=== PATIENT | male | born 1995 | race Caucasian/White ===

== ENCOUNTER 2022-05-08 20:44 | Emergency (ER) | payer BC ==
[~2022-05-08] VITALS: Ht 175.2 cm; Wt 67.1 kg
[2022-05-08 20:47] VITALS: BP 149/85
--- NOTE | 2022-05-08 21:00 | ED Lower Extremity ---
General Chief Complaint: Lower Extremity Stated Complaint: R ANKLE PAIN Nursing Triage Note: Patient states that he rolled his right ankle and buckled his right knee while skateboarding 4 hours ago. Source: patient History of Present Illness Date Seen by Provider: May 08, 2022 Time Seen by Provider: 20:49 Initial Comments 27-year-old male presenting with complaints of right ankle and knee pain since he fell skateboarding. He states he injured himself approximately 4 hours prior to arrival. He had gotten off a skateboard and rolled his ankle and then felt like his knee buckled. She denies hitting his head or losing consciousness. He has no numbness or weakness in his arms or legs. He states he has developed pain in his right leg to be able to stand. Onset: this afternoon Severity: severe Pain/Injury Location: right knee, right ankle Method of Injury: sports injury (skateboarding) Modifying Factors: Worse With Movement Allergies and Home Medications Allergies Coded Allergies: No Known Drug Allergies (Unverified , 05/08/22) Patient Home Medication List Home Medication List Reviewed: Yes Ibuprofen (Ibuprofen) 800 Mg Tablet, 800 MG PO Q8H PRN for PAIN Prescribed by: YANELIS CHEN on 05/08/222118 Review of Systems Constitutional: No chills, No fever EENTM: no symptoms reported Respiratory: no symptoms reported Cardiovascular: no symptoms reported Gastrointestinal: no symptoms reported Genitourinary: no symptoms reported Musculoskeletal: see HPI Skin: No change in color Psychiatric/Neurological: Denies Numbness, Denies Paresthesia Past Dukkjrp-Zniekp-Usjqmj Hx Patient Social History Tobacco Use?: No Substance use?: Yes Substance type: Marijuana Alcohol Use?: No Pt feels they are or have been: No Past Medical History Surgery/Hospitalization HX: Left knee torn ACL and meniscus injury Physical Exam Vital Signs Vital Signs - First Documented 05/08/22 20:47 Temp 36.8 Pulse 81 Resp 16 B/P (MAP) 149/85 (106) Pulse Ox 99 O2 Delivery Room Air Capillary Refill : Less Than 3 Seconds Height, Weight, BMI Height: '" Weight: lbs. oz. kg; 21.00 BMI Method: General Appearance: WD/WN, mild distress HEENT: PERRL/EOMI Neck: non-tender, full range of motion, supple Cardiovascular: normal peripheral pulses Knees: right knee normal range of motion, right knee pain (lateral and inferior aspect) Ankles: right ankle pain (lateral ankle pain without deformity, crepitus or step off. pain increased with plantar and dorsiflexion), right ankle soft tissue tenderness, right ankle swelling (mild) Neurologic/Tendon: normal sensation, normal motor functions, normal tendon functions Neurologic/Psychiatric: lap cutter II-XII nml as tested, no motor/sensory deficits, alert, oriented x 3 Skin: normal color, warm/dry Progress/Results/Core Measures Results/Orders My Orders Orders - YANELIS CHEN MD Ankle 3 View Right (05/08/22 20:48) Knee 3 View Right (05/08/22 20:50) Ibuprofen Tablet (Motrin Tablet) (05/08/22 21:12) Landon Bandage (05/08/22 21:13) Air Strup Ankle Brace (05/08/22 21:13) Crutches (05/08/22 21:13) Ice: Apply To Affected Area (05/08/22 21:13) Vital Signs/I&O 05/08/22 20:47 Temp 36.8 Pulse 81 Resp 16 B/P (MAP) 149/85 (106) Pulse Ox 99 O2 Delivery Room Air Blood Pressure Mean: 106 Progress Progress Note #1: Progress Note xrays of right knee and ankle to evaluate for acute bony abnormality Progress Note #2: Progress Note On my review of the three-view films of his right ankle and right knee he has no acute fracture or displacement. Will treat with Landon bandage for his ankle and an Aircast. Continue with ice and ibuprofen. Crutches for weightbearing as tolerated. If not improving over the next week check back with the clinic as he may need referred to orthopedics or have an MRI to look for soft tissue tears or injuries Diagnostic Imaging Diagonstic Imaging: Xray Plain Films/CT/US/NM/MRI: knee Comments On my review of the three-view films of the right knee he has no acute fracture or dislocation. [facility] [place], [place] NAME: GWENDOLYN SRINIVASAN Mervin [facility] REC#: [id number] PT STATUS: REG ER : 1995 PHYSICIAN: YANELIS CHEN MD ADMIT DATE: 05/08/22/ER FS Draft Date of Exam:05/08/22 KNEE 3 VIEW RIGHT EXAMINATION: Right knee radiographs, 3 views. COMPARISON: None. HISTORY: 27-year-old male, right knee pain. Injury. FINDINGS: There is an oblong sclerotic lesion of the proximal tibial metaphysis most likely reflecting a benign bone island. There is no identified acute fracture. There is no radiopaque foreign body. There is no knee joint effusion. Joint spaces are well preserved. IMPRESSION: 1. Grossly unremarkable radiographs of the right knee. Dictated on workstation # [id number] Dict: 05/08/222107 Trans: 05/08/222119 [facility] [id number] Interpreted by: KRISTI MITCHELL MD Electronically signed by: Reviewed: Reviewed by Me Diagonstic Imaging: Xray Plain Films/CT/US/NM/MRI: ankle Comments On my review of the three-view films of the right ankle he has no acute fracture or dislocation. [facility] [place] [place] NAME: GWENDOLYN SRINIVASAN [facility] REC#: [id number] PT STATUS: REG ER : 1995 PHYSICIAN: YANELIS CHEN MD ADMIT DATE: 05/08/22/ER FS Draft Date of Exam:05/08/22 ANKLE 3 VIEW RIGHT EXAMINATION: Right ankle radiographs, 3 views. COMPARISON: None. HISTORY: 27-year-old male, right ankle pain. Injury. FINDINGS: The alignment of the ankle mortise is unremarkable. There is no identified acute fracture. There is a tibiotalar joint effusion. The joint spaces are well preserved. IMPRESSION: 1. No identified acute fracture. 2. Tibiotalar joint effusion. 3. Unremarkable alignment of the ankle mortise. Dictated on workstation # [id number] Dict: 05/08/222106 Trans: 05/08/222119 [facility] [id number] Interpreted by: KRISTI MITCHELL MD Electronically signed by: Reviewed: Reviewed by Me Departure Impression Primary Impression: Right ankle sprain Qualified Codes: S93.401A - Sprain of unspecified ligament of right ankle, initial encounter Additional Impressions: Right knee sprain Qualified Codes: S83.91XA - Sprain of unspecified site of right knee, initial encounter Fall involving skateboard as cause of accidental injury Disposition: HOME, SELF-CARE Condition: Stable Departure-Patient Inst. Decision time for Depature: 21:16 Referrals: NO,LOCAL PHYSICIAN (PCP) Primary Care Physician [facility] [place] Patient Instructions: AIRCAST, Ankle Sprain ED, Knee Sprain ED, Safety with Scooters, Skates, and Skateboards, Using Cold for Pain Add. Discharge Instructions: Continue with ice, rest, elevation to help with ankle and knee pain. Use the Aircast and Landon bandage for compression and support. Crutches for weightbearing as tolerated. Continue with ibuprofen 800 mg every 8 hours as needed for severe pain. All discharge instructions reviewed with patient and/or family. Voiced unders tanding. Scripts Ibuprofen (Ibuprofen) 800 Mg Tablet 800 MG PO Q8H PRN for PAIN for 10 Days, #30 TAB 0 Refills Prov: YANELIS CEHN MD 05/08/22 Work/School Note: Work Release Form Date Seen in the Emergency Department: May 08, 2022 Return to Work: May 09, 2022 Restrictions: No Sports-Until Released Other Restrictions Listed Below: Light duty for next week. Limit use right leg. YANELIS CHEN MD May 08, 2022 20:59
[2022-05-08] MEDS ORDERED: IBUPROFEN 800 MG (MOTRIN) TAB PO STA (21:12)
[2022-05-08] MEDS ORDERED: IBUP-1780 PO (21:19)
--- NOTE | 2022-05-08 21:20 | Diagnostic Imaging Report ---
EXAMINATION: Right ankle radiographs, 3 views. COMPARISON: None. HISTORY: 27-year-old male, right ankle pain. Injury. FINDINGS: The alignment of the ankle mortise is unremarkable. There is no identified acute fracture. There is a tibiotalar joint effusion. The joint spaces are well preserved. IMPRESSION: 1. No identified acute fracture. 2. Tibiotalar joint effusion. 3. Unremarkable alignment of the ankle mortise. Dictated by: Dictated on workstation # [id number]
--- NOTE | 2022-05-08 21:21 | Diagnostic Imaging Report ---
EXAMINATION: Right knee radiographs, 3 views. COMPARISON: None. HISTORY: 27-year-old male, right knee pain. Injury. FINDINGS: There is an oblong sclerotic lesion of the proximal tibial metaphysis most likely reflecting a benign bone island. There is no identified acute fracture. There is no radiopaque foreign body. There is no knee joint effusion. Joint spaces are well preserved. IMPRESSION: 1. Grossly unremarkable radiographs of the right knee. Dictated by: Dictated on workstation # [id number]
== END 2022-05-08 21:22 | disposition home or self-care (01) ==
LOC: ER FS 20:46
DX: S93.401A Sprain of unspecified ligament of right ankle, initial encounter (principal); S83.91XA Sprain of unspecified site of right knee, initial encounter; Z28.310 Unvaccinated for COVID-19; V00.131A Fall from skateboard, initial encounter; Y93.51 Activity, roller skating (inline) and skateboarding
CPT/HCPCS: 73562; 73610

== ENCOUNTER 2023-08-10 11:08 | Emergency (ER) | payer SELFPAY ==
[~2023-08-10] VITALS: Ht 177.8 cm; Wt 58.1 kg
[~2023-08-10 11:08] MED LIST: IBUP-1780 PO
[2023-08-10] MEDS ORDERED: KETOROLAC INJ 60 MG/2 ML VIAL IM ONE (11:45)
[2023-08-10] MEDS ORDERED: LIDOCAINE 1% INJ 20 ML VIAL INJ ONE (11:45)
[2023-08-10] MEDS ORDERED: cefTRIAXone 1,000 MG VIAL IV/IM IM ONE (11:45)
--- NOTE | 2023-08-10 11:47 | ED EENT ---
History of Present Illness General Chief Complaint: Dental Problems/Pain Stated Complaint: DENTAL PAIN/SWELLING Nursing Triage Note: PT AMBULATE TO ROOM FS02 WITHOUT DIFFICULTY WITH C/O LEFT LOWER DENTAL PAIN X1.5 WEEKS. Source: patient History of Present Illness Date Seen by Provider: Aug 10, 2023 Time Seen by Provider: 11:25 Initial Comments 28-year-old male patient with history of a smoking for 18 years and previous episodes of dental abscess presented POV with complaining of left lower jaw pain and facial swelling for 10 days that did not get better with taking over-the- counter ibuprofen and 3 dose of nitrofurantoin belonged to a friend. Patient denies new injury, fever and chills, dysphagia, nausea and vomiting. Patient states that he took ibuprofen 3 hours ago and rated his pain 6/10. Patient not have a dentist appointment. Timing/Duration: gradual Severity: moderate Location: dental Allergies and Home Medications Allergies Coded Allergies: No Known Drug Allergies (Unverified , 05/08/22) Patient Home Medication List Home Medication List Reviewed: Yes Ibuprofen (Ibuprofen) 800 Mg Tablet, 800 MG PO Q8H PRN for PAIN Prescribed by: YANELIS CHEN on 05/08/222118 Naproxen (Naprosyn) 500 Mg Tablet, 500 MG PO BID PRN for pain Prescribed by: Edwina brooks on 08/10/23 1155 Penicillin V Potassium (Penicillin V Potassium) 500 Mg Tablet, 500 MG PO q 6 hour Prescribed by: Edwina brooks on 08/10/23 1155 Review of Systems Review of Systems Constitutional: no symptoms reported Eyes: No Symptoms Reported Ears: No Symptoms Reported Nose: no symptoms reported Mouth: no symptoms reported Throat: see HPI Respiratory: cough (chronic smoking cough) Cardiovascular: no symptoms reported Gastrointestinal: no symptoms reported Musculoskeletal: no symptoms reported Skin: no symptoms reported Neurological: No Symptoms Reported Hematologic/Lymphatic: No Symptoms Reported Immunological/Allergic: no symptoms reported All Other Systems Reviewed Negative Unless Noted: Yes Past Gaqkkdq-Sgxvbj-Rwpuer Hx Patient Social History Tobacco Use?: Yes Tobacco type used: Cigarettes Smoking Status: Never a Smoker Smokeless Tobacco Frequency: Never a User Use of E-Cig and/or Vaping dev: No Use of E-Cig and/or Vaping Mendez: Never a User Substance use?: Yes Substance type: Marijuana Substance frequency: Daily Alcohol Use?: Yes Pt feels they are or have been: No Past Medical History Surgery/Hospitalization HX: Left knee torn ACL and meniscus injury Physical Exam Vital Signs Vital Signs - First Documented 08/10/23 11:11 Temp 36.8 Pulse 83 Resp 18 B/P (MAP) 135/70 (91) O2 Delivery Room Air Height, Weight, BMI Height: '" Weight: lbs. oz. kg; 18.00 BMI Method: General Appearance: mild distress Eyes: bilateral eye normal inspection, bilateral eye PERRL Ears: bilateral ear auricle normal, bilateral ear canal normal, bilateral ear TM normal Nose: normal inspection Mouth/Throat: normal mouth inspection, pharynx normal, dental tenderness (Tooth #18 with remaining a small part of tooth with tenderness and abscess without d rainage of pus, left facial edema), mandibular swelling Neck: non-tender, full range of motion, supple, normal inspection Cardiovascular: normal peripheral pulses, regular rate, rhythm, no edema, no gallop, no JVD, no murmur Respiratory: chest non-tender, lungs clear, normal breath sounds, no respiratory distress, no accessory muscle use Neurologic/Psychiatric: no motor/sensory deficits, alert Skin: normal color, warm/dry Progress/Results/Core Measures Results/Orders My Orders Orders - EDWINA BROOKS MD Ceftriaxone Iv/Im (Ceftriaxone Iv/Im) (08/10/23 11:45) Lidocaine 1% Inj 20 Ml (Xylocaine 1% Inj (08/10/23 11:45) Ketorolac Injection (Ketorolac Injection (08/10/23 11:45) Medications Given in ED Current Medications Medications Dose Ordered Sig/Mahsa Route Start Time Stop Time Status Last Admin Dose Admin Ceftriaxone Sodium 1,000 mg ONCE ONCE IM 08/10/23 11:45 08/10/23 11:46 DC 08/10/23 11:46 1,000 MG Ketorolac Tromethamine 60 mg ONCE ONCE IM 08/10/23 11:45 08/10/23 11:46 DC 08/10/23 11:47 60 MG Lidocaine HCl 2.1 ml ONCE ONCE INJ 08/10/23 11:45 08/10/23 11:46 DC 08/10/23 11:46 2.1 ML Vital Signs/I&O 08/10/23 11:11 Temp 36.8 Pulse 83 Resp 18 B/P (MAP) 135/70 (91) O2 Delivery Room Air Blood Pressure Mean: 91 Progress Progress Note : Progress Note Patient with left lower jaw and dental pain for 10 days associated with swelling that did not get better with ibuprofen and 3 doses of nitrofurantoin. Patient had mild facial edema and extensive dental caries with tooth #18 abscess and tenderness. Patient did not want dental block. Patient treated with Rocephin IM and Toradol IM in ER with improvement of his pain. Patient advised to quit smoking. Prescription for Naprosyn and Pen-Vee K was given and advised to follow-up with a dentist in 7 to 10 days. Departure Impression Primary Impression: Dental abscess Additional Impression: Dental caries Disposition: HOME, SELF-CARE Condition: Stable Departure-Patient Inst. Decision time for Depature: 11:52 Referrals: NO,LOCAL PHYSICIAN (PCP/Family) Primary Care Physician Patient Instructions: Dental Pain, Quitting Smoking ED, Smoking: Not Just Harmful to Your Lungs and Heart, Tooth Abscess ED Add. Discharge Instructions: Quit smoking cigarette May use [id number] Orajel Follow-up with a dentist in 7 to 10 days, call your dentist on Saturday to make an appointment Return to ER as needed All discharge instructions reviewed with patient and/or family. Voiced understanding. Scripts Naproxen (Naprosyn) 500 Mg Tablet 500 MG PO BID PRN for pain, #20 TAB Prov: EDWINA BROOKS MD 08/10/23 Penicillin V Potassium (Penicillin V Potassium) 500 Mg Tablet 500 MG PO q 6 hour for dental abscess, #28 TAB Prov: EDWINA BROOKS MD 08/10/23 EDWINA BROOKS MD Aug 10, 2023 11:47
[2023-08-10] MEDS ORDERED: PENI500T PO (11:55)
[2023-08-10] MEDS ORDERED: NAPR-1071 PO (11:55)
[2023-08-10 12:02] VITALS: BP 114/62
== END 2023-08-10 12:02 | disposition home or self-care (01) ==
LOC: EDUNIT# 11:08 → ER FS 11:09
DX: K04.7 Periapical abscess without sinus (principal); K02.9 Dental caries, unspecified; F17.210 Nicotine dependence, cigarettes, uncomplicated
CPT/HCPCS: 99284